=== PATIENT | female | born 1945 | race Caucasian/White ===

== ENCOUNTER 2025-09-03 08:56 | Emergency (ER) | payer MEDICARE, OTHER ==
[~2025-09-03] VITALS: Ht 160 cm; Wt 67.9 kg
[2025-09-03 09:02] VITALS: BP 121/84; PULSE 107; RESP 18; TEMP 99.5; O2SAT 99
[2025-09-03 09:32] LABS: STREP A SCREEN NEGATIVE (Neg)
[2025-09-03 09:40] LABS: INFLUENZA TYPE A ANTIGEN RAPID NEGATIVE (Negative); INFLUENZA TYPE B ANTIGEN RAPID NEGATIVE (Negative)
--- NOTE | 2025-09-03 10:15 | Physician Documentation ---
History of Present Illness ~ Chief Complaint: Sore Throat Stated Complaint: STREP Time Seen by MD: 10:15 HPI This is a 79-year-old female who presents to the emergency department with a report of three days of severe sore throat causing pain even with swallowing her own saliva. She denies any fever, but does endorse some chills. Denies chronic health conditions or problems. Medication Reconciliation Allergies: Coded Allergies: No Known Allergies (Unverified , 09/03/25) Review of Systems ROS As stated above in the HPI, otherwise all systems are reviewed and negative. Physical Exam Vital Signs: Temperature: 99.5, Source: Temporal, Heart Rate: 107, Respiratory Rate: 18, BP: 121/84, Pulse Oximetry: 99, Weight: 67.900 Oxygen Flow Rate: 0 Physical Exam General: Alert, no apparent distress. HEENT: PERRL, EOMI, no injection, moist mucous membranes. Moderate posterior pharyngeal erythema. Tonsils are surgically absent. Neck: Full range of motion. Respiratory: Lungs clear, no respiratory distress. Chest: No accessory muscle use. Cardiovascular: Regular rate and rhythm, no murmurs. Gastrointestinal: Soft, nontender, nondistended. Bowels sounds present. Extremities: Normal range of motion, no deformity. Neurologic: Oriented x4. Psychiatric: Normal mood and affect. Skin: Normal color, warm and dry. No edema, no ecchymosis. Progress Results/Orders Results/Orders Orders - MICHAEL GARCIA NP Covid19 Binax Poc Result Entry (09/03/25 09:04) Completed Orders - MICHAEL GARCIA NP Influenza Type A&B Rapid Test (09/03/25 09:04) Dexamethasone Inj (Decadron 10mg/Ml Inj) (09/03/25 10:21) Ibuprofen Oral Suspension (Motrin Oral S (09/03/25 10:25) Vital Signs 09/03/25 09:02 Temp 99.5 Pulse 107 Resp 18 B/P (MAP) 121/84 Pulse Ox 99 O2 Flow Rate 0 Laboratory Tests Test 09/03/25 09:07 09/03/25 09:13 09/03/25 09:14 Influenza Type A Antigen Negative Influenza Type B Antigen Negative Group A Streptococcus Rapid Negative SARS-CoV-2 Antigen (Rapid) Negative Medical Decision Making Additional information obtaine: N/A Findings No previous visits to this hospital. Ear Diff. Dx: Considerations: Include: Other Eye Diff. Dx: Considerations: Include: Other Nose Diff. Dx: Considerations: Include: Other Tooth Diff. Dx: Considerations: Include: Other Throat Diff Dx: Considerations: Include: Other Additional Comment Differential Diagnosis Respiratory viruses (rhinovirus, coronavirus, adenovirus, parainfluenza) are the most common cause of pharyngitis in adults, accounting for 25-45% of cases.[1] While group A streptococcus causes 10-15% of adult pharyngitis, this has been excluded by negative testing.[1][3] Other viral causes to consider include Jr-Mata virus, herpes simplex virus, and cytomegalovirus, though these typically present with additional features such as posterior cervical adenopathy, palatal petechiae, or oropharyngeal ulcers.[1][4] Fusobacterium necrophorum may cause pharyngitis in some patients with chronic sore throat, though routine testing is not recommended.[1] Medical Decision-Making The Modified Centor criteria help assess bacterial infection likelihood based on fever by history, tonsillar exudates, tender anterior cervical adenopathy, and absence of cough.[2] Patients with fewer than 3 criteria do not need testing for group A streptococcus.[2] This patient's presentationwith congestion (suggesting viral etiology), negative strep test, and absence of exudatesindicates low probability of bacterial infection requiring antibiotics.[2][5] Departure Time of Disposition: 10:23 Impression: Primary Impression: Acute pharyngitis Condition: Stable Discharge Instructions: Pharyngitis Additional Instructions: Severe sore throat is likely due to a viral process. Your COVID, flu, strep testing was negative. You were given a dose of dexamethasone in liquid ibuprofen in the emergency department. You will be sent home with hydrocodone to use occasionally as needed for pain. Please do not drive for 6 hours after taking this medication. Please follow-up with your primary care provider within the next several days. Please return immediately if worse. Referrals: NO PRIMARY CARE PROVIDER (PCP) Prescriptions Hydrocodone Bit/Acetaminophen (Hydrocodon-Acetaminophen 5-325) 5 Mg-325 Mg Tablet 1 TAB PO Q12H PRN PRN for pain for 3 Days, #6 TAB Prov: MICHAEL GARCIA NP 09/03/25 Education Educated: Patient Educated regarding: diagnosis, treatment, prognosis, need for follow up Signature Scribe Signature: x Attestation: The note accurately reflects work and decisions made by me.Michael Lemus NP 09/03/25 10:29 MICHAEL GARCIA NP Sep 03, 2025 10:15
[2025-09-03] MEDS ORDERED: HYDR-3964 PO (10:37)
[2025-09-03] MEDS: dexamethasone sod phosphate 10mg/ml inj PO STA (10:41)
== END 2025-09-03 10:42 | disposition home or self-care (01) ==
LOC: ER 08:57
DX: J02.9 Acute pharyngitis, unspecified (principal); R68.83 Chills (without fever); Z20.822 Contact with and (suspected) exposure to COVID-19
CPT/HCPCS: 36415; 87081; 87804; 87811; 87880; 99283; J1100